=== PATIENT | male | born 1995 | race Two or more races ===

== ENCOUNTER 2018-10-26 14:17 | Emergency (ER) | payer OTHER ==
[~2018-10-26] VITALS: Ht 185.4 cm; Wt 74.8 kg
[2018-10-26 14:42] VITALS: BP 127/72
--- NOTE | 2018-10-26 15:25 | NUR ---
Patient left without his discharge instruction. Patient discharged to home in stable condition.
== END 2018-10-26 15:27 | disposition home or self-care (01) ==
LOC: ER 14:17
DX: J06.9 Acute upper respiratory infection, unspecified (principal)
CPT/HCPCS: Z7502